=== PATIENT | female | born 1995 | race Caucasian/White ===

== ENCOUNTER 2017-09-09 03:17 | Emergency (ER) | payer SELFPAY ==
[~2017-09-09] VITALS: Ht 172.7 cm; Wt 65.0 kg
[2017-09-09] MEDS ORDERED: SODIUM CHLORIDE 0.9% 1,000ML IVBOLUS ONE (03:30)
[2017-09-09] MEDS ORDERED: SODIUM CHLORIDE FLUSH 10ML SYR IVF ONE (03:30)
[2017-09-09] MEDS ORDERED: ONDANSETRON 2MG/ML, 2ML IVPush ONE (03:30)
[2017-09-09 03:44] LABS: HEMOGLOBIN 14.1 g/dL (11.7-16.4); WHITE BLOOD COUNT 9.8 x10^3/uL (3.4-10)
[2017-09-09] MEDS ORDERED: ONDANSETRON 2MG/ML, 2ML ONE (03:48)
[2017-09-09 03:54] LABS: ASPARTATE AMINO TRANSFERASE 8 U/L (15-37); BLOOD UREA NITROGEN 7 mg/dL (7-18)
[2017-09-09 05:30] VITALS: BP 116/80
== END 2017-09-09 06:50 | disposition left against medical advice (07) ==
LOC: ED 06:45
DX: F10.121 Alcohol abuse with intoxication delirium (principal); R73.9 Hyperglycemia, unspecified
CPT/HCPCS: 36415; 80053; 80307; 82010; 82962; 85025; 96361; 96374; 99284; J2405; J7030; G0479